=== PATIENT | male | born 1950 | race Caucasian/White ===

== ENCOUNTER → 2016-12-29 | Outpatient (CLI) | payer OTHER ==
[~2016-12-29] MED LIST: CPR500 PO; FLM4 PO; LRT5 PO
[2016-12-29 09:58] LABS: BLOOD UREA NITROGEN 20 mg/dl (7-18); BUN/CREATININE RATIO 22.9 (10-20); CALCIUM 8.5 mg/dl (8.5-10.1); CARBON DIOXIDE 32 mmol/L (21-32); CHLORIDE 109 mmol/L (98-107); CREATININE 0.88 mg/dl (0.60-1.40); GLUCOSE 100 mg/dl (70-99); HDL CHOLESTEROL 61 mg/dl; POTASSIUM 4.5 mmol/L (3.5-5.1); SODIUM 143 mmol/L (136-145)
[2016-12-29 10:04] LABS: CHOLESTEROL 221 mg/dl (0-200); CHOLESTEROL/HDL RATIO 3.6; TRIGLYCERIDES 85 mg/dl (0-150); VERY LOW DENSITY LIPOPROT CALC 17 mg/dl
== END | disposition home or self-care (01) ==
LOC: C.LAB 08:05
PROVIDERS: ATTEND Internal Medicine
DX: Z00.00 Encounter for general adult medical examination without abnormal findings (principal); E78.5 Hyperlipidemia, unspecified

== ENCOUNTER → 2017-07-22 | Outpatient (CLI) | payer OTHER | END | disposition home or self-care (01) | LOC: C.LAB 13:24 | PROVIDERS: ATTEND Urology | DX: N40.1 Benign prostatic hyperplasia with lower urinary tract symptoms (principal) ==

== ENCOUNTER → 2017-10-26 | Outpatient (CLI) | payer OTHER | END | disposition home or self-care (01) | LOC: C.PATHSPEC 16:03 | PROVIDERS: ATTEND Physician Assistant | DX: C44.519 Basal cell carcinoma of skin of other part of trunk (principal); C44.619 Basal cell carcinoma of skin of left upper limb, including shoulder ==

== ENCOUNTER → 2017-11-07 | Outpatient (CLI) | payer OTHER | END | disposition home or self-care (01) | LOC: C.LABSPEC 11:19 | PROVIDERS: ATTEND Urology | DX: N40.1 Benign prostatic hyperplasia with lower urinary tract symptoms (principal) ==

== ENCOUNTER 2017-12-06 11:24 | Day surgery (SDC) | payer OTHER ==
[2017-11-22 08:15] VITALS: BMI 31.0
--- NOTE | 2017-11-22 08:55 | PAT Medication Instructions ---
Service Date Nov 22, 2017. Current Home Medication List Aspirin (Aspirin Ec), 81 MG PO QAM Cephalexin Monohydrate (Keflex), 500 MG PO BID Finasteride (Proscar), 5 MG PO QAM Fluocinonide (Fluocinonide), 1 APPLN TOP DAILY PRN for PRN Glucosamine Sulfate (Glucosamine), 1 CAP PO QAM Tamsulosin HCl (Tamsulosin HCl), 1 CAP PO QAM Medication Instructions For Your Scheduled Surgery -Contact your surgeon for instructions for: Aspirin (Aspirin Ec), 81 MG PO QAM -Continue as directed: Cephalexin Monohydrate (Keflex), 500 MG PO BID - Hold the following medications starting today: Glucosamine Sulfate (Glucosamine), 1 CAP PO QAM - Hold the following medications 24 hours prior to surgery: Fluocinonide (Fluocinonide), 1 APPLN TOP DAILY PRN for PRN - Hold the following medications the morning of surgery: Finasteride (Proscar), 5 MG PO QAM Tamsulosin HCl (Tamsulosin HCl), 1 CAP PO QAM If you have any questions please call us at [phone] or [phone] or [phone]
--- NOTE | 2017-11-22 09:59 | DIAGNOSTIC IMAGING REPORT ---
TWO VIEW CHEST CLINICAL HISTORY: Preoperative examination. FINDINGS: PA and lateral chest radiographs are obtained. No prior studies are available for comparison at the time of dictation. The heart is mildly enlarged. The pulmonary vasculature is noncongested. Postoperative change and scarring are seen at the left lung base. No airspace consolidation or pleural effusion is identified. There is no pneumothorax. The skeletal structures are osteopenic. The bony thorax appears intact. IMPRESSION: Mild cardiac enlargement and postoperative change at the left lung base with no active disease in the chest. Electronically signed by: David Aguilar M.D. 11/22/2017 9:57 AM Dictated Date/Time: 11/22/2017 9:56 AM
[2017-11-22 12:01] LABS: BASO % 0.4 %; BASO ABS # 0.02 K/uL (0-0.2); EOS % 1.1 %; EOS ABS # 0.05 K/uL (0-0.5); HEMATOCRIT 45.6 % (42-52); HEMOGLOBIN 14.9 g/dL (14.0-18.0); IG# 0.01 K/uL (0.00-0.02); LYMPH % 33.1 %; LYMPH ABS # 1.53 K/uL (1.2-3.4); MEAN CELL VOLUME 97.9 fL (80-100); MEAN CORPUSCULAR HGB CONC 32.7 g/dl (32-36); MEAN PLATELET VOLUME 10.6 fL (7.4-10.4); MONO ABS # 0.51 K/uL (0.11-0.59); NEUT % 54.2 %; PLATELET COUNT 224 K/uL (130-400); RED CELL DISTRIBUTION WIDTH CV 13.4 % (11.5-14.5); RED CELL DISTRIBUTION WIDTH SD 47.9 fL (36.4-46.3); WHITE BLOOD COUNT 4.62 K/uL (4.8-10.8)
[2017-11-22 12:15] LABS: CALCIUM 8.6 mg/dl (8.5-10.1); CREATININE 0.92 mg/dl (0.60-1.40); POTASSIUM 4.5 mmol/L (3.5-5.1)
[~2017-12-06] VITALS: Ht 182.9 cm; Wt 104.5 kg
[~2017-12-06 11:24] MED LIST changes: +ASPI81TA28 PO; +ATROPINE SULFATE 0.1 MG/ML 5ML SYR IV PRN; +CEPH500C2 PO; +CIPROFLOXACIN / D5W 400 MG IV SCH; -CPR500 PO; +EpHEDrine SULFATE INJ 50 MG/ML AMP IV PRN; +FENTANYL CITRATE INJ 50 MCG/1 ML 2 ML VIAL IV PRN; +FINA5TAB PO; +FLUO0.0566 TOP; +GLUC100014 PO; +LACTATED RINGER'S 1000ML 1,000 ML IV SCH; -LRT5 PO; +ONDANSETRON INJ 2 MG/ML 2 ML VIAL IV PRN
[2017-12-06 11:46] VITALS: BP 166/93; PULSE 65; TEMP 36.6; O2SAT 98; Ht 182.9 cm; Wt 104.5 kg
--- NOTE | 2017-12-06 12:09 | History & Physical Bridge Note ---
H&P Re-Evaluation Bridge Note: I have examined the patient, reviewed the History & Physical and in the interval since the performance of the History & Physical I have noted the following changes of clinical significance: No changes noted
[2017-12-06] MEDS ORDERED: LIDOCAINE HCL 2% 2 ML VIAL (20MG/ML) ONE (12:17)
[2017-12-06] MEDS ORDERED: ONDANSETRON INJ 2 MG/ML 2 ML VIAL ONE (12:17)
[2017-12-06] MEDS ORDERED: FENTANYL CITRATE INJ 50 MCG/1 ML 2 ML VIAL ONE (12:17)
[2017-12-06] MEDS ORDERED: PROPOFOL IV EMULSION 10 MG/ML 20 ML VIAL IV ONE ×2 (12:17→13:15)
[2017-12-06] MEDS ORDERED: DEXAMETHASONE SOD INJ 4 MG/ML VIAL ONE (12:17)
--- NOTE | 2017-12-06 13:18 | [facility] Operative Report ---
Operative Report Operative Date Dec 06, 2017. Pre-Operative Diagnosis Posterior Bladder Wall Ulcer Post-Operative Diagnosis Same as Preop Procedure(s) Performed Cystoscopy, Bladder Biopsy, Fulguration Surgeon Dr. Garcia Welding Lead Burner Surgeon(s) None Estimated Blood Loss 5 ml Findings 2 large ulcers in the upper posterior wall of his bladder Specimens A. Posterior Bladder Wall Anesthesia Type General Complication(s) none Disposition yes Recovery Room / PACU Indications Voiding dysfunction Description of Procedure Patient was identified in the preoperative holding area, appropriate informed consents reviewed and completed and the patient was transported to the operating suite. Upon arrival he received appropriate preoperative antibiotics in the form of ciprofloxacin. Adequate general anesthesia was achieved and he was placed in dorsal lithotomy position where he was sterilely prepped and draped in standard fashion. I began the case by passing a 22 Setswana cystoscope with 30 lens. Inspection revealed no evidence of stricture disease, he has a relatively enlarged prostate with lateral lobe hypertrophy. Bladder neck is not particularly high, and he looks to be a good candidate for uro-lift if his voiding dysfunction is not improved in the near future. Inspection of the bladder was conducted utilizing both a 30 and 70 lens. He is noted to have 2 ulcers in the upper posterior wall. These are very friable with numerous glomerulations around them. I passed a biopsy forceps and biopsied the larger of the 2 ulcers. There is notable bleeding immediately after the biopsy which compromised visualization. I was able to fulgurate the base of the biopsy site and control the bleeding without difficulty, I then fulgurated the remaining aspects of that ulcer. Another ulcer was also oozing at that time and rather than biopsy, I elected to treat it directly with fulguration. Full inspection at that time revealed 3 other small areas that were likely early ulcers, I treated these also with fulguration. Hemostasis was excellent at the conclusion of the case, I emptied his bladder and withdrew my scope. Patient was extubated and taken to the PACU in stable condition. I attest to the content of the Intraoperative Record and any orders documented therein. Any exceptions are noted below.
[2017-12-06] MEDS ORDERED: CIPR-255 PO (13:20)
[2017-12-06] MEDS ORDERED: PHEN95TA14 PO (13:20)
[2017-12-06] MEDS ORDERED: SODIUM CHLORIDE 0.9% 1000ML 1,000 ML IV SCH (13:22)
--- NOTE | 2017-12-06 13:22 | Discharge Instructions ---
Discharge Instructions Date of Service Dec 06, 2017. Admission Reason for Admission: bladder Ulcers Discharge Discharge Diagnosis / Problem: voiding dysfunction Discharge Goals Goal(s): Decrease discomfort, Improve function, Increase independence, Improve disease control, Prevent Disease Progression Activity Recommendations Activity Limitations: resume your previous activity Lifting Limitations: none Exercise/Sports Limitations: none May Resume Sexual Activity: when tolerated Shower/Bathe: no limitations Driving or Machine Use: resume 1 day after discharge . Instructions / Follow-Up Instructions / Follow-Up Please keep your previously scheduled follow up appointment with Dr. Garcia. It is normal to see some blood in you urine over the next several days. Current Hospital Diet Patient's current hospital diet: Discharge Diet Recommended Diet: Regular Diet Procedures Procedures Performed: Cystoscopy, Bladder Biopsy, Fulguration Pending Studies Studies pending at discharge: no Medical Emergencies . Who to Call and When: Medical Emergencies: If at any time you feel your situation is an emergency, please call 911 immediately. . Non-Emergent Contact Non-Emergency issues call your: Urologist Call Non-Emergent contact if: you have a fever, temperature is above 101.5, your pain is not controlled, your pain is worsening . . "Provider Documentation" section prepared by Jordy Felipe. .
[2017-12-06] MEDS ORDERED: HYDROCODONE/ACETAMIN 5/325MG TAB PO PRN ×2 (13:30)
[2017-12-06] MEDS ORDERED: ACETAMINOPHEN 325 MG TAB PO PRN (13:30)
[2017-12-06 14:12] VITALS: BP 143/84; PULSE 60; TEMP 37.1; O2SAT 97
[2017-12-06 14:48] VITALS: BP 167/95; PULSE 68; O2SAT 95
--- NOTE | 2017-12-06 15:02 | Anesthesiology Progress Note ---
Anesthesia Post Op Note Date & Time Dec 06, 2017 at 15:01 Vital Signs Pain Intensity: 3 Vital Signs Past 12 Hours Date Time Temp Pulse Resp B/P (MAP) Pulse Ox O2 Delivery O2 Flow Rate FiO2 12/06/17 14:48 68 18 167/95 95 Room Air 12/06/17 14:12 37.1 60 18 143/84 97 Room Air 12/06/17 14:04 36.3 95 Room Air 12/06/17 14:01 63 14 116/85 95 12/06/17 14:01 61 14 12/06/17 13:56 59 13 12/06/17 13:56 58 13 97 12/06/17 13:55 132/75 12/06/17 13:51 60 16 12/06/17 13:51 60 16 95 12/06/17 13:50 135/85 12/06/17 13:47 61 16 12/06/17 13:47 60 16 95 12/06/17 13:45 135/81 12/06/17 13:42 61 23 100 12/06/17 13:42 61 23 12/06/17 13:40 135/75 12/06/17 13:37 59 13 12/06/17 13:37 57 13 100 12/06/17 13:36 58 16 12/06/17 13:36 58 16 100 12/06/17 13:35 135/82 12/06/17 13:31 64 20 12/06/17 13:31 64 20 99 12/06/17 13:30 116/74 12/06/17 13:29 60 17 99 12/06/17 13:29 61 17 12/06/17 13:25 136/74 12/06/17 13:24 71 14 100 12/06/17 13:24 36.2 68 14 126/75 99 Oxymask 10 12/06/17 13:24 69 14 12/06/17 11:46 36.6 65 18 166/93 (117) 98 Room Air Notes Mental Status: alert / awake / arousable, participated in evaluation Pt Amnestic to Procedure: Yes Nausea / Vomiting: adequately controlled Pain: adequately controlled Airway Patency, RR, SpO2: stable & adequate BP & HR: stable & adequate Hydration State: stable & adequate Anesthetic Complications: no major complications apparent
[2017-12-06 15:15] VITALS: BP 144/87; PULSE 61; TEMP 36.4; O2SAT 98
== END 2017-12-06 15:20 | disposition home health service (06) ==
LOC: C.ACU 11:24
PROVIDERS: ATTEND Urology
DX: N32.89 Other specified disorders of bladder (principal); R35.1 Nocturia; N40.1 Benign prostatic hyperplasia with lower urinary tract symptoms; N13.8 Other obstructive and reflux uropathy; Z85.828 Personal history of other malignant neoplasm of skin; Z87.891 Personal history of nicotine dependence; Z79.899 Other long term (current) drug therapy; Z79.82 Long term (current) use of aspirin

== ENCOUNTER → 2017-12-08 | Outpatient (CLI) | payer OTHER ==
[~2017-12-08] MED LIST changes: -ATROPINE SULFATE 0.1 MG/ML 5ML SYR IV PRN; -CEPH500C2 PO; +CIPR-255 PO; -CIPROFLOXACIN / D5W 400 MG IV SCH; -EpHEDrine SULFATE INJ 50 MG/ML AMP IV PRN; -FENTANYL CITRATE INJ 50 MCG/1 ML 2 ML VIAL IV PRN; -LACTATED RINGER'S 1000ML 1,000 ML IV SCH; -ONDANSETRON INJ 2 MG/ML 2 ML VIAL IV PRN; +PHEN95TA14 PO
== END | disposition home or self-care (01) ==
LOC: C.PATHSPEC 18:11
PROVIDERS: ATTEND Surgery
DX: L72.0 Epidermal cyst (principal)

== ENCOUNTER → 2017-12-27 | Outpatient (CLI) | payer OTHER ==
[2017-12-27 10:05] LABS: HEMOGLOBIN A1C 5.8 % (4.5-5.6)
[2017-12-27 10:15] LABS: ALBUMIN 3.3 gm/dl (3.4-5.0); ALKALINE PHOSPHATASE 90 U/L (45-117); ALT/SGPT 36 U/L (12-78); BLOOD UREA NITROGEN 24 mg/dl (7-18); CALCIUM 8.3 mg/dl (8.5-10.1); CARBON DIOXIDE 28 mmol/L (21-32); CHOLESTEROL 223 mg/dl (0-200); CREATININE 0.84 mg/dl (0.60-1.40); GLUCOSE 99 mg/dl (70-99); LDL CHOLESTEROL (DIRECT) 137 mg/dl; POTASSIUM 4.1 mmol/L (3.5-5.1); SODIUM 140 mmol/L (136-145); TOTAL PROTEIN 6.8 gm/dl (6.4-8.2)
[2017-12-27 10:16] LABS: AST/SGOT 31 U/L (15-37)
== END | disposition home or self-care (01) ==
LOC: C.LAB 07:16
PROVIDERS: ATTEND Internal Medicine
DX: E78.5 Hyperlipidemia, unspecified (principal); R73.9 Hyperglycemia, unspecified

== ENCOUNTER → 2018-01-05 | Outpatient (CLI) | payer OTHER ==
[2018-01-10 14:39] LABS: FECAL OCCULT BLOOD #1 NEGATIVE (NEGATIVE); FECAL OCCULT BLOOD #2 NEGATIVE (NEGATIVE); FECAL OCCULT BLOOD #3 NEGATIVE (NEGATIVE)
== END | disposition home or self-care (01) ==
LOC: C.LABSPEC 13:14
PROVIDERS: ATTEND Internal Medicine
DX: Z12.11 Encounter for screening for malignant neoplasm of colon (principal)

== ENCOUNTER → 2018-03-21 | Outpatient (CLI) | payer OTHER ==
[~2018-03-21] MED LIST changes: +HYDR-5688 PO
[2018-03-21 16:19] LABS: BASO % 0.6 %; BASO ABS # 0.03 K/uL (0-0.2); EOS % 1.6 %; EOS ABS # 0.08 K/uL (0-0.5); HEMOGLOBIN 14.2 g/dL (14.0-18.0); IG# 0.01 K/uL (0.00-0.02); LYMPH % 34.5 %; LYMPH ABS # 1.73 K/uL (1.2-3.4); MEAN CELL VOLUME 96.3 fL (80-100); MEAN CORPUSCULAR HEMOGLOBIN 32.6 pg (25-34); MEAN CORPUSCULAR HGB CONC 33.8 g/dl (32-36); MEAN PLATELET VOLUME 10.1 fL (7.4-10.4); MONO % 11.8 %; MONO ABS # 0.59 K/uL (0.11-0.59); NEUT % 51.3 %; NEUT ABS # 2.58 K/uL (1.4-6.5); PLATELET COUNT 232 K/uL (130-400); RED CELL DISTRIBUTION WIDTH CV 13.2 % (11.5-14.5); RED CELL DISTRIBUTION WIDTH SD 46.9 fL (36.4-46.3); WHITE BLOOD COUNT 5.02 K/uL (4.8-10.8)
[2018-03-21 16:26] LABS: BLOOD UREA NITROGEN 19 mg/dl (7-18); CALCIUM 8.7 mg/dl (8.5-10.1); CARBON DIOXIDE 29 mmol/L (21-32); CREATININE 0.87 mg/dl (0.60-1.40); GLUCOSE 108 mg/dl (70-99); POTASSIUM 4.2 mmol/L (3.5-5.1); SODIUM 141 mmol/L (136-145)
== END | disposition home or self-care (01) ==
LOC: C.LAB 15:31
PROVIDERS: ATTEND Urology
DX: Z01.812 Encounter for preprocedural laboratory examination (principal)

== ENCOUNTER 2018-03-28 11:18 | Day surgery (SDC) | payer OTHER ==
[2018-03-20 13:17] VITALS: BMI 28.0
--- NOTE | 2018-03-21 15:18 | PAT Medication Instructions ---
Service Date Mar 21, 2018. Current Home Medication List Aspirin (Aspirin Ec), 81 MG PO QAM Finasteride (Proscar), 5 MG PO QAM Fluocinonide (Fluocinonide), 1 APPLN TOP DAILY PRN for PRN Glucosamine Sulfate (Glucosamine), 1 CAP PO QAM Tamsulosin HCl (Tamsulosin HCl), 1 CAP PO QAM Medication Instructions For Your Scheduled Surgery - Hold the following medications starting 03/22/18: Glucosamine Sulfate (Glucosamine), 1 CAP PO QAM - Check with surgeon and prescribing physician for instructions: Aspirin (Aspirin Ec), 81 MG PO QAM - Hold the following medications 24 hours prior to surgery: Fluocinonide (Fluocinonide), 1 APPLN TOP DAILY PRN for PRN - Take the following medications the morning of surgery with a sip of water: Finasteride (Proscar), 5 MG PO QAM Tamsulosin HCl (Tamsulosin HCl), 1 CAP PO QAM If you have any questions please call us at [phone] or [phone] or [phone]
[2018-03-21 15:37] VITALS: Ht 182.9 cm; Wt 103.1 kg
[~2018-03-28] VITALS: Ht 182.9 cm; Wt 103.1 kg
[~2018-03-28 11:18] MED LIST changes: +ATROPINE SULFATE 0.1 MG/ML 5ML SYR IV PRN; -CIPR-255 PO; +CIPROFLOXACIN / D5W 400 MG IV SCH; +EpHEDrine SULFATE INJ 50 MG/ML AMP IV PRN; +FENTANYL CITRATE INJ 50 MCG/1 ML 2 ML VIAL IV PRN; -HYDR-5688 PO; +LACTATED RINGER'S 1000ML 1,000 ML IV SCH; +ONDANSETRON INJ 2 MG/ML 2 ML VIAL IV PRN; -PHEN95TA14 PO
[2018-03-28 11:43] VITALS: BP 153/83; PULSE 66; TEMP 36.1; O2SAT 96
[2018-03-28] MEDS ORDERED: MIDAZOLAM HCL 1 MG/ML 2ML VIAL ONE (12:55)
[2018-03-28] MEDS ORDERED: PROPOFOL IV EMULSION 10 MG/ML 20 ML VIAL ONE ×2 (12:55→13:19)
[2018-03-28] MEDS ORDERED: FENTANYL CITRATE INJ 50 MCG/1 ML 2 ML VIAL ONE (12:56)
--- NOTE | 2018-03-28 13:39 | [facility] Operative Report ---
Operative Report Operative Date Mar 28, 2018. Pre-Operative Diagnosis BPH; history of bladder ulcer Post-Operative Diagnosis BPH; history of bladder ulcer Procedure(s) Performed Cystoscopy; uro-lift Surgeon [employer] Vice President Surgeon(s) None Estimated Blood Loss None Drains None Anesthesia Type General Complication(s) none Disposition yes Recovery Room / PACU Indications Voiding dysfunction Description of Procedure Patient was identified in the preoperative holding area, appropriate informed consents reviewed and completed he was transported to the operating suite. Upon arrival he received appropriate preoperative antibiotics the form of ciprofloxacin. Adequate sedation was achieved, and he is placed in dorsal lithotomy position where he was sterilely prepped and draped in standard fashion. I began the case with passing a 0 lens and cystoscope. Inspection revealed healthy appearing urethra, relatively small prostate with lateral lobe hypertrophy. Inspection of the bladder was conducted revealing mild, diffuse inflammation of the posterior wall, the area that was previously fulgurated was noted but did not appear to be nearly as significant as it was in the past. I elected to avoid repeat fulguration today, and centered my attention to the prostate. 4 separate uro-lift devices were implanted, the first 2 placed adjacent to the verumontanum on the left and then the right. I then placed 2 additional device is just inside an anterior to the first 2. There was a nice anterior channel at the conclusion of the case. There was good hemostasis. Subsequently concluded the case after emptying the bladder and withdrawing the scope. Patient was reversed from anesthesia and taken to the PACU in stable condition. I attest to the content of the Intraoperative Record and any orders documented therein. Any exceptions are noted below.
[2018-03-28] MEDS ORDERED: HYDR-5688 PO ×2 (13:41)
[2018-03-28] MEDS ORDERED: PHEN95TA14 PO ×2 (13:41)
[2018-03-28] MEDS ORDERED: CIPR-255 PO ×2 (13:41)
[2018-03-28] MEDS ORDERED: PHENAZOPYRIDINE HCL 200 MG TAB PO STA (13:43)
[2018-03-28] MEDS ORDERED: KETOROLAC TROMETHAMINE 15 MG/ML VIAL IV. STA (13:43)
[2018-03-28] MEDS ORDERED: SODIUM CHLORIDE 0.9% 1000ML 1,000 ML IV SCH (13:43)
--- NOTE | 2018-03-28 13:43 | Discharge Instructions ---
Discharge Instructions Date of Service Mar 28, 2018. Admission Reason for Admission: Benigh Localized Hyperplasia Of Prostate W/Urinary Discharge Discharge Diagnosis / Problem: BPH Discharge Goals Goal(s): Decrease discomfort, Improve function, Increase independence, Improve disease control Activity Recommendations Activity Limitations: resume your previous activity Lifting Limitations: none Exercise/Sports Limitations: none May Resume Sexual Activity: when tolerated Shower/Bathe: no limitations Driving or Machine Use: resume 1 day after discharge . Instructions / Follow-Up Instructions / Follow-Up Please keep your previously scheduled follow up appointment. Please continue to take tamsulosin and finasteride for the next 2 weeks and then quit. Current Hospital Diet Patient's current hospital diet: Discharge Diet Recommended Diet: Regular Diet Procedures Procedures Performed: Cystoscopy; uro-lift Pending Studies Studies pending at discharge: no Laboratory Results Hemoglobin A1c Test 12/27/17 07:26 Range/Units Estimated Average Glucose 120 mg/dl Hemoglobin A1c 5.8 H 4.5-5.6 % Lipid Panel Test 12/27/17 07:26 Range/Units Triglycerides Level 100 0-150 mg/dl Cholesterol Level 223 H 0-200 mg/dl HDL Cholesterol 68 mg/dl LDL Cholesterol Direct 137 mg/dl Cholesterol/HDL Ratio 3.3 LDL Cholesterol, Calculated mg/dl Medical Emergencies . Who to Call and When: Medical Emergencies: If at any time you feel your situation is an emergency, please call 911 immediately. . Non-Emergent Contact Non-Emergency issues call your: Urologist Call Non-Emergent contact if: you have a fever, temperature is above 101.5, your pain is not controlled, your pain is worsening . . "Provider Documentation" section prepared by Jordy Felipe. .
[2018-03-28 13:45] VITALS: BP 114/64; PULSE 78; TEMP 36.5; O2SAT 97
[2018-03-28] MEDS ORDERED: OXYCODONE/ACETAMINOPHEN 5-325 TAB PO PRN ×2 (13:45)
[2018-03-28] MEDS ORDERED: ACETAMINOPHEN 325 MG TAB PO PRN (13:45)
[2018-03-28 14:10] VITALS: BP 129/79; PULSE 61; TEMP 36; O2SAT 97
--- NOTE | 2018-03-28 14:49 | Anesthesiology Progress Note ---
Anesthesia Post Op Note Date & Time Mar 28, 2018 at 14:49 Vital Signs Pain Intensity: 3 Vital Signs Past 12 Hours Date Time Temp Pulse Resp B/P (MAP) Pulse Ox O2 Delivery O2 Flow Rate FiO2 03/28/18 14:10 36 61 18 129/79 97 Room Air 03/28/18 13:45 36.5 78 18 114/64 97 Room Air 03/28/18 11:43 36.1 66 18 153/83 (106) 96 Room Air Notes Mental Status: alert / awake / arousable, participated in evaluation Pt Amnestic to Procedure: Yes Nausea / Vomiting: adequately controlled Pain: adequately controlled Airway Patency, RR, SpO2: stable & adequate BP & HR: stable & adequate Hydration State: stable & adequate Anesthetic Complications: no major complications apparent
== END 2018-03-28 14:38 | disposition home or self-care (01) ==
LOC: C.ACU 11:18
PROVIDERS: ATTEND Urology
DX: N40.1 Benign prostatic hyperplasia with lower urinary tract symptoms (principal); N13.8 Other obstructive and reflux uropathy; N32.89 Other specified disorders of bladder; E66.9 Obesity, unspecified; Z68.31 Body mass index [BMI] 31.0-31.9, adult; Z85.828 Personal history of other malignant neoplasm of skin; Z87.891 Personal history of nicotine dependence; Z79.899 Other long term (current) drug therapy; Z79.82 Long term (current) use of aspirin

== ENCOUNTER 2023-02-08 05:07 | Observation (INO) ==
--- NOTE | 2023-01-19 08:50 | PAT Medication Instructions ---
Medication Instructions Date of Service January 19, 2023 Home Medications Medication Instructions Recorded finasteride 5 mg tablet (Proscar) 5 mg PO QAM #30 tabs 12/30/22 aspirin 81 mg tablet,delayed release (Adult Low Dose Aspirin) 81 mg PO QAM fiber 1 tab PO UD PRN vibegron 75 mg tablet (Gemtesa) 75 mg PO QAM PRN finasteride 5 mg tablet (Proscar) 5 mg PO QAM DO NOT take the morning of surgery fiber 1 tab PO UD PRN vibegron 75 mg tablet (Gemtesa) 75 mg PO QAM PRN Take morning of surgery With a small sip of water, OTHERWISE NOTHING TO EAT OR DRINK AFTER MIDNIGHT: aspirin 81 mg tablet,delayed release (Adult Low Dose Aspirin) 81 mg PO QAM (unless directed otherwise by surgeon) finasteride 5 mg tablet (Proscar) 5 mg PO QAM Other Notes If you have any questions please call us at [phone] or [phone] or [phone] or [phone]
--- NOTE | 2023-01-27 09:18 | Anesthesiology Consultation ---
Date of Service January 27, 2023 Assessment & Plan (1) Encounter for pre-operative examination: Plan - Outpatient joint assessment: Patient is currently scheduled for inpatient pathway. If re-evaluated pending system levels during current pandemic/surgeon requests outpatient pathway, patient is not acceptable candidate for outpatient joint program from anesthesia standpoint. Chart Review Chart Review: Acceptable Risk for Surgery and Patient seen in Pre Admission Testing Teaching & Discussion Pre-Anesthesia Teaching/Discussion Notes: Instructed NPO after midnight before surgery, except medications with 15 cc of water. Medication instructions provided according to the PAT guidelines. History Surgery Operation Date: 02/08/23 07:00 Proposed Procedures p Right Total Knee Arthroplasty - Michael Garcia MD Height/Weight Height: 6 ft Weight: 102.058 kg Allergies Allergy/AdvReac Type Severity Reaction Status Date / Time bee venom protein (honey bee) Allergy Severe ANAPHYLAXIS Verified 01/19/23 07:32 No Known Drug Allergies Allergy Unknown NKDA Verified 01/19/23 07:32 Medications Home Medications Medication Instructions Recorded Confirmed Last Taken aspirin 81 mg tablet,delayed 81 mg PO QAM 08/03/18 01/19/23 12/05/22 08:00 release (Adult Low Dose Aspirin) fiber 1 tab PO UD PRN Constipation 12/02/22 01/19/23 12/09/22 08:00 vibegron 75 mg tablet (Gemtesa) 75 mg PO QAM PRN nocturia 12/02/22 01/19/23 12/09/22 08:00 finasteride 5 mg tablet (Proscar) 5 mg PO QAM #30 tabs 12/30/22 01/19/23 Unknown Past Medical History Medical History DVT (deep venous thrombosis) RLE 2018, on anticoagulation for 6-8 months, unknown if provoked or unprovoked per pt Enlarged prostate History of basal cell carcinoma nose, top of left ear s/p Mohs History of colon polyps Nocturia Overactive bladder Snores and occasional witnessed apneas, denies formal sleep study Patient denies h/o stroke, seizures, heart attack, heart failure, DM, HTN, or blood transfusions. Exercise / Class Metabolic Activity II 4-5 Yardwork/Stairs/Walk up hill (denies chest discomfort or shortness of breath with 1 FOS) Past Family History Family History Father Heart disease Other No family history of adverse response to anesthesia Past Surgical History Surgical History History of colonoscopy annual schedule History of lung surgery LLL surgery for fungal infection per pt many yrs ago History of urologic surgery urolift S/P TURP 11/2022 [facility] LMA#5. Past Anesthesia History No Hx of Anesthesia Complications and No Family Hx of Anesthesia Complications History of PONV No Hx of PONV and No Hx of Motion Sickness Social History Smoking Status: Former smoker tobacco type: cigarettes Do You Dip or Chew Tobacco: No Smoking End Date: 40 years ago Hx Alcohol Use: Yes Alcohol type: wine alcohol intake frequency: 0-2 drinks per day Hx Substance Use: No substance use type: does not use Review of Systems Patient denies chest pain, shortness of breath, dyspnea on exertion, reflux, fever, chills, cough, wheezing, or palpitations. Physical Exam Vital Signs Vitals BP 166/90 (pt reports occasional white coat elevated readings) P 57 TEMP 98 SP02 94% on RA RESP 17 Physical Full cervical extension range of motion without pain TMD 3.5 finger breadths Mallampati Score 2 Dentition: multiple caps/crowns, one implant upper side (pt unsure of laterality), denies chipped or loose teeth, or bridges Lungs: normal respiratory effort. Good air movement, clear throughout to auscultation, no adventitious breath sounds Cardiac: regular rate and rhythm, no murmurs noted Carotid arteries: negative bruit bilat Lab Results Anesthesia Preop Results Results Anesthesia Widget: WBC 5.03 K/ul (4.8-10.8) 01/27/23 Hgb 13.8 g/dl (14.0-18.0) L 01/27/23 Hct 41.4 % (42.0-52.0) L 01/27/23 Plt 195 K/uL (130-400) 01/27/23 Na 140 mmol/L (136-145) 01/27/23 K 4.7 mmol/L (3.5-5.1) 01/27/23 Cl 105 mmol/L (98-107) 01/27/23 CO2 30 mmol/L (21-32) 01/27/23 BUN 23 mg/dl (6-23) 01/27/23 Creat 0.91 mg/dl (0.6-1.4) 01/27/23 Glucose Level 88 mg/dl (70-99(Fasting)) 01/27/23 PT 10.8 Seconds (9.0-12.0) 01/27/23 PTT 24.7 Seconds (21.0-31.0) 01/27/23 INR 1.0 (0.9-1.1) 01/27/23 Blood Type A Positive 01/27/23 Antibody Screen NEGATIVE 01/27/23 Testing Electrocardiogram Date: 11/26/22 NSR, rate 63 bpm Left axis deviation Chest X-Ray Date: 11/26/22 Chronic findings without acute process COVID-19 Risk Screen Screening Information COVID-19 Screen Date: 01/27/23 Exposure 21 Days Family/Household +COVID Last 21 Days: No Exposure 10 Days Any COVID Exposure Last 10 Days: No Symptoms Last 10 Days Experienced COVID Sx Last 10 Days: No + COVID 0-90 Days COVID + in Last 0-90 Days: No
[2023-02-08] MEDS ORDERED: traMADol HCL 50 MG TABLET PO SCH (06:00)
[2023-02-08] MEDS ORDERED: LR 60ML/HR IV SCH (06:00)
[2023-02-08] MEDS ORDERED: ROPIVACAINE 0.5% HCL/PF 150 MG, BUPIVACAINE 0.75% MPF 20 ML, EPINEPHrine 0.15 MG, Ketor... INFIL SCH (06:00)
[2023-02-08] MEDS ORDERED: CeleBREX 200 MG CAP PO SCH (06:00)
[2023-02-08] MEDS ORDERED: dexAMETHasone 4 MG TAB PO SCH (06:00)
[2023-02-08] MEDS ORDERED: TRANEXAMIC ACID 1,000 MG **IV Pre-op IV SCH (06:00)
[2023-02-08] MEDS ORDERED: METOCLOPRAMIDE HCL 10 MG TABLET PO SCH (06:00)
[2023-02-08] MEDS ORDERED: LR 500ML BOLUS, THEN 15ML/HR IV SCH (06:00)
[2023-02-08] MEDS ORDERED: ACETAMINOPHEN 500 MG TAB PO SCH (06:00)
[2023-02-08] MEDS ORDERED: TRANEXAMIC ACID 1,000 MG **IV Intra-op IV SCH (06:00)
[2023-02-08] MEDS ORDERED: oxyCODONE HCL 10 MG TABCR (OxyCONTIN) PO SCH (06:00)
[2023-02-08] MEDS ORDERED: ceFAZolin 2000MG 2,000 MG/15 ML SYR IV SCH (06:00)
[2023-02-08] MEDS ORDERED: FAMOTIDINE 20 MG TAB PO SCH (06:00)
[2023-02-08] MEDS ORDERED: BUPIVACAINE 0.5 % 5 MG/1 ML PF 10ML VIAL ONE (06:20)
[2023-02-08] MEDS ORDERED: ROPIVACAINE 0.5% 5 MG/ML 30 ML VIAL ONE (06:21)
--- NOTE | 2023-02-08 06:38 | History & Physical Bridge Note ---
Date of Service February 08, 2023 History & Physical Bridge Note I have examined the patient, reviewed the History & Physical and in the interval since the performance of the History & Physical I have noted the following changes of clinical significance: no changes noted
[2023-02-08] MEDS ORDERED: VANCOMYCIN HCL 1000MG/20ML VIAL ONE (06:42)
[2023-02-08] MEDS ORDERED: ORTHO JOINT ANESTHETIC ONE (06:42)
[2023-02-08] MEDS ORDERED: ePHEDrine sulfate 50 MG/ML AMP IV PRN (09:52)
[2023-02-08] MEDS ORDERED: ONDANSETRON INJ 2 MG/ML 2 ML VIAL IV PRN ×2 (09:52→11:16)
[2023-02-08] MEDS ORDERED: ATROPINE SULFATE 0.1 MG/ML 10ML SYR IV PRN (09:52)
[2023-02-08] MEDS ORDERED: fentaNYL citrate PF 100 MCG/2 ML VIAL IV PRN (09:52)
[2023-02-08] MEDS ORDERED: HYDROmorphone INJ 2 MG/ML SYR/VIAL IV PRN (09:52)
[2023-02-08] MEDS ORDERED: PROMETHAZINE HCL 12.5 MG in SODIUM CHLORIDE 0.9% 50 ML IV PRN (09:52)
--- NOTE | 2023-02-08 10:06 | Operative Report ---
Post Operative Report Pre & Post Diagnosis Operation Date: 02/08/23 07:00 Pre-Op Diagnosis: Right Knee Osteoarthritis Post-Op Diagnosis: Right Knee Osteoarthritis I identified the patient and participated in the time-out.: Yes Procedure Operation Date: 02/08/23 07:00 Actual Procedures p Right Total Knee Arthroplasty(Right) - Michael Garcia MD Surgeon Michael Garcia M.D. Psychiatric Clinician Gwen Monge; PA-C Estimated Blood Loss 10 Findings Consistent with Post-Op Diagnosis Specimens bone and soft tissue Anesthesia Type MAC Spinal Regional Description of Procedure Patient was taken to the operating room, placed under general anesthesia. Time out performed, prepped and draped in routine sterile fashion. He was given 2gm IV Ancef for surgical prophylaxis. I was present during the entire case, please see Dr. Garcia's operative report for further detail. Patient was awakened and taken to the recovery room in stable condition. I attest to the content of the Intraoperative Record and any orders documented therein. Any exceptions are noted below.
--- NOTE | 2023-02-08 10:07 | Operative Report ---
Post Operative Report Pre & Post Diagnosis Operation Date: 02/08/23 07:00 Pre-Op Diagnosis: Right Knee Osteoarthritis Post-Op Diagnosis: Right Knee Osteoarthritis I identified the patient and participated in the time-out.: Yes Procedure Operation Date: 02/08/23 07:00 Actual Procedures p Right Total Knee Arthroplasty with unresurfaced patella (Right) - Michael Garcia MD Surgeon Michael Garcia MD Charging Machine Operator Gwen Monge physicians news production assistant no resident or fellow available Estimated Blood Loss 10 Findings Consistent with Post-Op Diagnosis Specimens Bone and soft tissue lesions Anesthesia Type MAC Spinal Regional Complications none Disposition Accompanied Patient To Recovery: No Disposition: Recovery Room Indications Abrahan is a 72. He has end-stage arthritis of his right knee refractory to nonsurgical treatment. He is elected to proceed with operative intervention. Description of Procedure Informed consent. Patient identified. He identified the operative site as right knee. I marked with my initials. Preop surgical timeout performed. Preop dose of IV antibiotics given. TXA given. Positioned supine on the OR table with a padded post under the right calf a bump under the right hip and a tourniquet on the right thigh. The leg was prepped and draped in the usual sterile fashion. DVT prophylaxis intraoperatively with mechanical devices. Postoperatively early mobility mechanical devices and apixaban. Limb exsanguinated with the Esmarch. Tourniquet inflated 275 mmHg and shortly thereafter to 300 mmHg. An anterior midline incision was made of about 20 cm in length followed by medial parapatellar arthrotomy. Soft tissue on the anterior aspect of the distal femur was resected. A large retropatellar fat pad was removed. The synovial reflection in the lateral gutter was released. The patella looked normal without any significant chondrosis or bone spurs. It was left on resurfaced. An extensile medial release was performed. There was some bleeding perforating vessels just medial to the tibial tubercle which were treated with bone wax. The knee was flexed with the patella everted. Cruciate ligaments were resected. The lateral compartment was normal with an intact meniscus. The medial compartment was markedly abnormal with the entire weightbearing area of the femoral condyle 3 x 3 cm of eburnated bone. Likewise a 2 cm area on the medial tibial plateau more posteriorly of eburnated bone. The medial meniscus was deficient. The cruciates were removed and the menisci were removed. The tibia was subluxated. A transport pilot hole was drilled just in front of and between the tibial spines and an intramedullary alignment sisi was inserted. The 0 degree cutting block was aligned with the tibial tubercle and pinned into place to cut 10 mm off of the lateral side corresponding to about a 4 mm cut medially. The alignment was checked with the extra medullary alignment sisi with the leg held in extension. [place] was parallel to the tibia and the sisi intersected the second ray and bisected the ankle joint. This cut was made and sized to a 5. Medial and posterior medial osteophytes were removed. Medial and posterior medial release was performed. A transport pilot hole was drilled into the distal femur just above the PCL attachment. Intramedullary alignment sisi was inserted with a distal femoral cutting block set to remove 14 mm of bone at a 5 degree right knee valgus angle. The exam prior to surgery showed range of motion 0/7/130. Cruciates and collaterals were intact and there was no significant effusion in the right knee. The guide was pinned in the place and the distal cut was made. The extension gap was a symmetric 10. The epicondylar axis was marked out. Distal femoral sizing block was applied and sized to a 5-1/2. It was pinned for a 6 and the 5 cutting block was applied. I confirmed that we would not notch the femur. This cut was then made. The pin holes for external rotation matched the epicondylar axis. The flexion gap was a symmetric 10. Posteromedial osteophytes were removed. The box cutting guide was applied and lateralized. The box cut was made and the trial femur fit well. Attention was turned to the tibia where the 5 trial tray was applied. The keel was drilled and punched. Tibial tray lateralized and aligned with the tibial tubercle. Trialing showed that the 10 mm thick block gave full extension intact stability in full extension and 90 degrees with trace to 1+ MCL laxity and LCL laxity in mid position. The components were removed from the knee. Pin holes were made into the eburnated bone medial tibial plateau. The canals were plugged and the Ortho joint mix was injected into the back of the knee. 2 bags of Simplex P cement were mixed in and while in a doughy state smears were applied to the posterior condyles. The components were cemented and placed femur and tibia with a spacer in between held in full extension until the cemented hardened at 93 minutes of inflation. Tourniquet then let down and meticulous hemostasis performed. The extraneous cement was removed as encountered and the back of the knee was explored with no cement. Trialing was again performed and the after mentioned laxity profile applied. The knee was copiously irrigated with sterile saline. While the cement was drying the Ortho joint mix was injected into the remainder of the knee and copious pulsatile lavage was performed preparing the bony surfaces meticulously. The final polyethylene was inserted. The extensor mechanism was closed above the equator the patella with interrupted #2 FiberWire. Below the equator with running and interrupted #1 Vicryl. The skin was then closed in layers with 0 and 2-0 Vicryl plus amandeep. The leg was cleaned with wet and dry sponges and a soft sterile dressing was applied Xeroform 4 x 4's ABD soft wrap and a full-length Kaiden wrap. Knee immobilizer. Patient was awakened from anesthesia without difficulty and taken to the recovery room in stable condition. The resected bone and soft tissue were sent for specimen. Counts were correct. Blood loss was estimated to be 10 cc. At the conclusion of the operation I spoke with patient's by phone and informed her of my findings. Patient will be admitted to the hospital. He will receive PT and OT as well as pain control. His blood thinner will start 12 hours postoperatively and will plan on discharge in the morning pending his condition. [place] assisted flexion with the extensor mechanism closed was 125 degrees. He had full extension without any tightness. Components inserted with a J[employer]J PFC Sigma rotating platform knee a size 5 posterior stabilized right femur a size 5 mobile-bearing keeled tibial tray and a size 5 x 10 mm thick posterior stabilized polyethylene insert. I attest to the content of the Intraoperative Record and any orders documented therein. Any exceptions are noted below.
--- NOTE | 2023-02-08 10:32 | XRay Report ---
XR knee RT 1 or 2V routine CLINICAL HISTORY: Postoperative evaluation. COMPARISON: Right knee radiographs January 14, 2023. FINDINGS: Alignment of the total right knee arthroplasty is anatomic. There is no periprosthetic fra cture. No unexpected radiopaque foreign bodies. There are skin amandeep. IMPRESSION: Expected findings following total right knee arthroplasty. ACT 112: Negative or not required by law. Electronically signed by: Adriano Maxwell M.D. 02/08/2023 10:31 AM
--- NOTE | 2023-02-08 10:47 | Anesthesiology Progress Note ---
Date of Service February 08, 2023 Anesthesia Post Procedure Vital Signs Vital Signs: Temp Pulse Resp BP Pulse Ox O2 Del Method 02/08/23 10:30 69 20 114/73 97 Room Air 02/08/23 10:20 62 12 119/67 95 Room Air 02/08/23 10:10 36.0 C L 67 15 108/61 95 Room Air 02/08/23 05:42 36.6 C 70 18 158/93 H 94 Room Air Transfer of Care Handoff Completed per policy Notes Mental Status: alert / awake / arousable and participated in evaluation Nausea / Vomiting: adequately controlled Pain: adequately controlled Airway Patency, RR, SpO2: stable & adequate BP & HR: stable & adequate Hydration State: stable & adequate Neuraxial Anesthesia: was administered and sensory block is resolving Anesthetic Complications: no major complications apparent and Pt Satisfied with anesthetic care
[2023-02-08] MEDS ORDERED: HYDROmorphone INJ 0.5 MG/0.5 ML SYR IV PRN (11:16)
[2023-02-08] MEDS ORDERED: TAMSULOSIN HCL 0.4 MG CAP PO PRN (11:16)
[2023-02-08] MEDS ORDERED: oxyCODONE HCL IR 5 MG TAB (IMMEDIATE RELEASE) PO PRN (11:16)
[2023-02-08] MEDS ORDERED: bisacodyL 10 MG SUPP PR PRN (11:16)
[2023-02-08] MEDS ORDERED: MAGNESIUM HYDROXIDE SUSP 30 ML UDC PO PRN (11:16)
[2023-02-08] MEDS ORDERED: METOCLOPRAMIDE HCL INJ 5 MG/ML 2 ML VIAL IV PRN (11:16)
[2023-02-08] MEDS ORDERED: NALOXONE HCL 0.4 MG/1 ML VIAL/CARP IV PRN (11:16)
[2023-02-08] MEDS ORDERED: FIBER PO PRN (11:16)
[2023-02-08] MEDS ORDERED: traMADol HCL 50 MG TABLET PO PRN (11:16)
[2023-02-08] MEDS: SODIUM CHLORIDE 0.9% 1000ML 1,000 ML IV SCH ×2 (11:31→21:48)
[2023-02-08] MEDS: KETOROLAC TROMETHAMINE 15 MG/ML VIAL IV SCH ×2 (13:00→18:05)
[2023-02-08] MEDS: ACETAMINOPHEN 500 MG TAB PO SCH ×2 (14:13→21:12)
--- NOTE | 2023-02-08 15:46 | Orthopedic Progress Note ---
Date of Service February 08, 2023 Assessment & Plan (1) Status post right knee replacement: Plan: Stable postop. Rehab discussed. Pain well controlled. Plan discharge home in morning if stable and goals met. Eliquis for DVT prophylaxis beginning tonight. Postop antibiotics. Admission and Anticipated Discharge Date Admission Date: February 08, 2023 Subjective Pain 2 out of 10. No problems reported. Discussed surgical findings and preservation of patella. Physical Exam Physical Exam: Foot warm with DP pulse 1+ sensation intact top and bottom of the foot. He has 5- out of 5 ankle and toe plantarflexion dorsiflexion and eversion strength. Dressing clean and dry Results & Data Vital Signs (Past 12 Hours) Vital Signs Temp Pulse Pulse Resp BP Pulse Ox O2 Del Method 02/08/23 14:00 36.3 C L 74 16 149/78 H 94 Room Air 02/08/23 13:00 36.4 C L 77 16 172/87 H 94 Room Air 02/08/23 12:00 36.3 C L 68 16 148/78 H 99 Nasal Cannula 02/08/23 11:33 36.6 C 62 14 126/70 92 Nasal Cannula 02/08/23 11:00 36.4 C L 65 16 136/72 92 Room Air 02/08/23 10:30 69 20 114/73 97 Room Air 02/08/23 10:20 62 12 119/67 95 Room Air 02/08/23 10:10 36.0 C L 67 15 108/61 95 Room Air 02/08/23 05:42 36.6 C 70 18 158/93 H 94 Room Air O2 Flow Rate 02/08/23 14:00 02/08/23 13:00 02/08/23 12:00 2 02/08/23 11:33 2 02/08/23 11:00 02/08/23 10:30 02/08/23 10:20 02/08/23 10:10 02/08/23 05:42
[2023-02-08] MEDS: ceFAZolin 2000MG 2,000 MG/15 ML SYR IV SCH (15:57)
[2023-02-08] MEDS ORDERED: TRANEXAMIC ACID / 0.7% NACL 1,000 MG/100 ML BAG IV SCH (16:00)
[2023-02-08] MEDS ORDERED: SENNA 8.6 MG TAB PO SCH (21:00)
[2023-02-08] MEDS: APIXABAN 2.5 MG TAB PO SCH (21:11)
[2023-02-08] MEDS: DOCUSATE SODIUM 100 MG CAP PO SCH (21:11)
[2023-02-09] MEDS: ceFAZolin 2000MG 2,000 MG/15 ML SYR IV SCH (00:03)
[2023-02-09] MEDS: KETOROLAC TROMETHAMINE 15 MG/ML VIAL IV SCH ×2 (00:04→05:58)
[2023-02-09] MEDS: ACETAMINOPHEN 500 MG TAB PO SCH (05:58)
[2023-02-09 06:27] LABS: Hematocrit (blood only) 37.4 % (42.0-52.0); Hemoglobin 12.5 g/dl (14.0-18.0); Mean Corpuscular Hemoglobin 32.1 pg (25.0-34.0); Mean Corpuscular Hgb Conc 33.4 g/dL (32.0-36.0); Mean Corpuscular Volume 96.1 fL (80.0-100.0); Mean Platelet Volume 10.2 fL (9.4-12.4); Platelet Count 200 K/uL (130-400); RDW Coefficient of Variation 13.9 % (11.5-14.5); RDW Standard Deviation 49.1 fL (36.4-46.3); Red Blood Count 3.89 M/uL (4.70-6.10); White Blood Count 11.63 K/ul (4.8-10.8)
[2023-02-09 06:45] LABS: BUN Creatinine Ratio 34.8 (10-20); Calcium 8.5 mg/dl (8.6-10.3); Creatinine Clr Calc Pharmacy 91.1 ml/min; Est GFR (African American) 98.3 ml/min; Est GFR (Non-African American) 84.8 ml/min; Potassium 4.8 mmol/L (3.5-5.1)
[2023-02-09] MEDS: DOCUSATE SODIUM 100 MG CAP PO SCH (07:49)
[2023-02-09] MEDS: APIXABAN 2.5 MG TAB PO SCH (07:50)
[2023-02-09] MEDS ORDERED: dexAMETHasone 4 MG TAB PO SCH (08:00)
[2023-02-09] MEDS ORDERED: FINASTERIDE 5 MG TAB PO SCH (09:00)
[2023-02-09] MEDS ORDERED: ASPIRIN 81 MG ECTAB PO SCH (09:00)
[2023-02-09] MEDS ORDERED: MULTIVITAMIN TAB PO SCH (09:00)
--- NOTE | 2023-02-09 09:14 | Orthopedic Progress Note ---
Date of Service February 09, 2023 Assessment & Plan (1) Status post right knee replacement: Plan: Right total knee arthroplasty 02/08/[address] Garcia Physical therapy and Occupational Therapy today. Continue regular diet Pain medication as prescribed. Knee immobilizer on when out of bed. He may weight-bear as tolerated with the assistance of a walker. Dressings were changed today. Advised to keep these in place until home health nurse comes to his home. H&H stable. Eliquis 2.5 mg twice daily for DVT prophylaxis. This will be continued for 2 to 4 weeks after surgery. He also has AV impulse boots and KILLIAN stockings. Case management for disposition needs. Plans for discharge to home today with home health and physical therapy. Discharge instructions were reviewed. Patient questions answered. He understands and agrees with the plan. Findings discussed with Dr. Garcia. Admission and Anticipated Discharge Date Admission Date: February 08, 2023 Subjective Patient sitting up in a chair. Doing well. Tolerating a regular diet. No nausea or vomiting. Denies chest pain or shortness of breath. States that he does feel ready to go home. No issues overnight. Physical Exam Musculoskeletal: Right knee incision clean, dry and intact. Light bloody dressing on the Xeroform and gauze. This was removed today and his incision was cleansed with a sterile saline wipe and new dressings were applied with his Killian stocking. Distal pulses are 1+. Mild distal edema. No pitting. Full ankle range of motion without discomfort with palpation. Normal strength of his right lower extremity. He is able to independently straight leg raise today with no extensor lag. Tolerates logrolling of his right leg. He can flex to about 70 degrees comfortably today. Results & Data Vital Signs (Past 12 Hours) Vital Signs Temp Pulse Resp BP Pulse Ox O2 Del Method 02/09/23 06:01 36.6 C 65 18 134/79 95 Room Air 02/09/23 02:58 36.4 C L 66 18 117/64 94 Room Air 02/08/23 22:22 36.4 C L 67 18 156/71 H 95 Room Air Laboratory Results 02/09/23 02/09/23 Range/Units 05:42 05:42 WBC 11.63 H (4.8-10.8) K/ul RBC 3.89 L (4.70-6.10) M/uL Hgb 12.5 L (14.0-18.0) g/dl Hct 37.4 L (42.0-52.0) % MCV 96.1 (80.0-100.0) fL MCH 32.1 (25.0-34.0) pg MCHC 33.4 (32.0-36.0) g/dL RDW Std Deviation 49.1 H (36.4-46.3) fL RDW Coeff of Brandi 13.9 (11.5-14.5) % Plt Count 200 (130-400) K/uL MPV 10.2 (9.4-12.4) fL Sodium 139 (136-145) mmol/L Potassium 4.8 (3.5-5.1) mmol/L Chloride 108 H (98-107) mmol/L Carbon Dioxide 26 (21-32) mmol/L Anion Gap 5 (3-11) BUN 31 H (6-23) mg/dl Creatinine 0.89 (0.6-1.4) mg/dl Est Cr Clr Drug Dosing 91.1 ml/min Est GFR ( Amer) 98.3 ml/min Est GFR (Non-Af Amer) 84.8 ml/min BUN/Creatinine Ratio 34.8 H (10-20) Glucose 126 H (70-99(Fasting)) mg/dl Calcium 8.5 L (8.6-10.3) mg/dl
--- NOTE | 2023-02-09 10:22 | Discharge Summary ---
Date of Service February 09, 2023 Discharge Data Procedures Performed Operation Date: 02/08/23 07:00 Actual Procedures p Right Total Knee Arthroplasty(Right) - Michael Garcia MD Hospital Course (1) Status post right knee replacement: Patient was kept in observation at [facility] after undergoing elective right total knee arthroplasty. Surgery was performed on February 08, [address] Garcia. His surgery was performed with spinal anesthetic and a peripheral nerve block. He was given 2 g of IV Ancef preoperatively which was continued for 24 hours after his surgery. He tolerated the procedure well without any intraoperative complications. Postoperative x-rays performed in the recovery room show a stable prosthesis without any complications. He was allowed out of bed, weight-bear as tolerated right lower extremity with the assistance of a walker and a knee immobilizer on his right knee when out of bed. He was given IV Dilaudid, Tylenol, tramadol, oxycodone and Toradol for postoperative pain control. His pain was well controlled after surgery. His home medications were resumed. He was given a regular diet which she tolerated during his inpatient stay. On postoperative day 1 his dressing was changed, incision was clean and dry and a new dressing was applied. His Killian stocking was applied. He was placed on Eliquis 2.5 mg which started 12 hours after surgery for DVT prophylaxis. This will be continued for 2 to 4 weeks after surgery. His vitals remained stable during his inpatient stay. His CBC and BMP on postoperative day 1 were stable. He was seen and evaluated by physical therapy and Occupational Therapy. He was deemed safe for discharge to his home. He was discharged to his home in stable condition with [facility] home health and in-home physical therapy. Discharge instructions were reviewed. All questions were answered. Findings were discussed with Dr. Garcia. Patient understands and agrees with the plan.
== END 2023-02-09 10:59 | disposition home health service (06) ==
LOC: ASU 05:07 → 3E 05:07